=== PATIENT | female | born 1980 | race Caucasian/White ===

== ENCOUNTER → 2020-08-18 13:19 | Outpatient (CLI) | payer OTHER, SELFPAY ==
[2020-08-18] MEDS: COVID-19 VACC #1, MRNA(MOD) 100 MCG/0.5 ML VIAL IM (13:24)
== END ==
PROVIDERS: Visit Provider Internal Medicine
DX: Z23 Encounter for immunization (principal)
CPT/HCPCS: 0011A; 91301

== ENCOUNTER → 2020-09-15 13:07 | Outpatient (CLI) | payer OTHER, SELFPAY ==
[2020-09-15] MEDS: COVID-19 VACC #2, MRNA(MOD) 100 MCG/0.5 ML VIAL IM (13:13)
== END ==
PROVIDERS: Visit Provider Internal Medicine
DX: Z23 Encounter for immunization (principal)
CPT/HCPCS: 0012A; 91301

== ENCOUNTER → 2021-06-02 14:07 | Outpatient (CLI) | payer OTHER, SELFPAY | PROVIDERS: Visit Provider Nurse Practitioner Family | DX: N34.3 Urethral syndrome, unspecified (principal) | CPT/HCPCS: 87077; 87086; 87186 ==

== ENCOUNTER → 2024-05-13 08:35 | Outpatient (CLI) | payer OTHER, SELFPAY ==
[2024-05-13 09:45] LABS: Alanine Aminotransferase 21 IU/L (<35); Albumin 4.2 g/dL (3.5-5.0); Albumin Globulin Ratio 1.4 (1.0-2.8); Alkaline Phosphatase 75 U/L (38-126); Aspartate Aminotransferase 23 IU/L (14-36); BUN Creatinine Ratio 11.8 (6-22); Bilirubin Total 0.4 mg/dL (0.2-1.3); Blood Urea Nitrogen 11 mg/dL (7-17); Calcium 9.4 mg/dL (8.4-10.2); Carbon Dioxide 22 mmol/L (22-32); Chloride 108 mmol/L (98-107); Cholesterol 234 mg/dL (140-199); Estimated Glomerular Filt Rate > 60 mL/min (>60); Globulin 2.9 g/dL (1.7-4.1); Glucose 100 mg/dL (70-100); HDL Cholesterol 100 mg/dL (40-60); HEMOLYSIS < 15 (0-50); LDL Cholesterol Calculated 87 mg/dL (<100); Potassium 4.2 mmol/L (3.4-5.1); Sodium 137 mmol/L (137-145); Total Protein 7.1 g/dL (6.3-8.2); Triglycerides 234 mg/dL (35-150)
[2024-05-13 10:02] LABS: Prolactin 13.1 ng/mL (3.0-18.6)
[2024-05-13 10:03] LABS: Follicle Stimulating Hormone 3.01 mIU/mL; Luteinizing Hormone 2.51 mIU/mL
[2024-05-13 10:14] LABS: TSH w/ Reflex to FT4 4.05 uIU/mL (0.47-4.68)
[2024-05-13 13:05] LABS: Add Manual Diff / Slide Review NO; Basophils Absolute Auto 100 /uL (0-100); Basophils Percent Auto 0.9 % (0-2); Eosinophils Absolute Auto 100 /uL (0-450); Eosinophils Percent Auto 1.2 % (2-4); Hematocrit 35.8 % (36-46); Hemoglobin 11.3 g/dL (12.0-16.0); Lymphocytes Absolute Auto 2000 /uL (1100-4500); Lymphocytes Percent Auto 29.5 % (25-40); Mean Corpuscular HGB Conc 31.6 % (30-36); Mean Corpuscular Hemoglobin 25.4 PG (26-34); Mean Corpuscular Volume 80.5 fL (80-100); Monocytes Absolute Auto 700 /uL (0-900); Monocytes Percent Auto 9.9 % (3-14); Neutrophils Absolute Auto 4000 /uL (1500-7000); Neutrophils Percent Auto 58.5 % (50-75); Platelet Count 279 X10^3/uL (150-400); Red Blood Cell Count 4.45 X10^6/uL (4.0-5.2); Red Cell Distribution Width 16.8 % (11.6-14.8); White Blood Cell Count 6.9 X10^3/uL (4.5-11.0)
== END ==
LOC: LAB 08:36
PROVIDERS: PCP Family Medicine; Referring Provider Family Medicine; Visit Provider Family Medicine
DX: E66.9 Obesity, unspecified (principal); N93.9 Abnormal uterine and vaginal bleeding, unspecified
CPT/HCPCS: 36415; 80053; 80061; 82397; 83001; 83002; 84146; 84443; 85025

== ENCOUNTER → 2024-10-22 13:28 | Outpatient (CLI) | payer OTHER, SELFPAY ==
--- NOTE | 2024-10-22 13:29 | DI.US.S_ITS ---
PROCEDURE: US PELVIC COMPLETE INDICATIONS: Abnormal uterine bleeding TECHNIQUE: Real-time scanning was performed of the pelvic organs, with image documentation. Additional endovaginal scanning was necessary due to incomplete visualization of the adnexal and endometrial structures by transabdominal scanning. COMPARISON: [facility], US, US PELVIC COMPLETE WITH TRANSVAGINAL, 07/11/2023, 13:00. FINDINGS: Uterus: Uterus is anteverted and enlarged in size at 11.0 x 6.6 x 5.7 cm. The myometrium is homogeneous. The endometrium measures 24.4 mm combined thickness. Heterogeneous endometrial echotexture is seen. Focal mass with internal cystic area and internal vascularity is seen within endometrium measures 2.6 x 1.9 x 2.1 cm in size. Ovaries: The right ovary measures 3.9 x 2.6 x 2.0 cm, with a calculated ovarian volume of 10.6 cc. The left ovary measures 3.0 x 2.1 x 1.5 cm, with a calculated ovarian volume of 4.9 cc. Dominant follicle versus simple cyst is seen in right ovary measures 2.1 x 2.3 x 1.7 cm in size. Less than 12 follicles can be seen in each ovary. No adnexal masses are seen. Other: No pathologic free abdominal or pelvic fluid. IMPRESSION: 1. Enlarged uterus. No discrete uterine fibroids. 2. Thickened endometrium with suggestion of 2.6 x 1.9 x 2.1 cm solid mass within endometrium with internal vascularity . [employer]ist correlation is recommended. 3. Normal appearing bilateral ovaries. We strive to produce accurate, complete, and clear reports of imaging services. To assist us in improving patient care, this report was composed using standard report templates and voice recognition software. Therefore, it may contain abnormal punctuation, insertions and/or omissions. Occasional wrong-word or sound-alike substitutions may occur. Though we review the report and make efforts to correct it, we do recommend that the report be read carefully in proper context to recognize any text inaccuracies. Dictated by: David Rojas M.D. on 10/22/2024 at 17:10 Approved by: David Rojas M.D. on 10/22/2024 at 17:13
== END ==
PROVIDERS: PCP Family Medicine; Referring Provider Family Medicine; Visit Provider Family Medicine
DX: N93.9 Abnormal uterine and vaginal bleeding, unspecified (principal); N85.2 Hypertrophy of uterus; R93.89 Abnormal findings on diagnostic imaging of other specified body structures
CPT/HCPCS: 76830; 76856

== ENCOUNTER 2024-12-09 09:18 | Day surgery (SDC) | payer OTHER, SELFPAY ==
--- NOTE | 2024-12-09 | PATH_ITS ---
[facility] Accession Number: [id number] No. of containers..03 Tissue . 01 Material submitted: . PART A: colon - COLON, ASCENDING POLYP PART B: colon - SIGMOID POLYP PART C: rectosigmoid junction - RECTOSIGMOID POLYP X2 . 01 Diagnosis: A. ASCENDING COLON POLYP: Sessile serrated adenoma. . B. SIGMOID COLON POLYP: Hyperplastic polyp. . C. RECTOSIGMOID COLON POLYPS: Hyperplastic polyp x2. MRV 12/18/2024 1415 Local . 01 Electronically signed: . Elroy Sosa MD, PhD, Pathologist NPI- [id number] . 01 Gross description: . Part A: COLON, ASCENDING POLYP: Received in formalin is 1 fragment(s) of bell, soft tissue measuring 0.5 x 0.2 x 0.1 cm submitted entirely in 1 cassette(s) Part B: SIGMOID POLYP: Received in formalin is 1 fragment(s) of bell, soft tissue measuring 0.4 x 0.3 x 0.2 cm submitted entirely in 1 cassette(s) Part C: RECTOSIGMOID POLYP X2: Received in formalin are 2 fragment(s) of bell, soft tissue measuring 0.1 x 0.1 x 0.1 cm to 0.4 x 0.4 x 0.2 cm submitted entirely in 1 cassette(s) /SONAM 12/17/2024 1655 Local . 01 Pathologist provided ICD-10: D12.2 . 01 CPT . 011717, 787227, 784673 Specimen Comment: A courtesy copy of this report has been sent to [facility]ology Performed at: [address] [facility] [place], [place], [place] [id number] MD Devang Shi MD Phone: [phone]
[2024-12-09 09:40] VITALS: BP 126/85; PULSE 80; RESP 16; TEMP 36.1; O2SAT 94
[2024-12-09] MEDS: LACTATED RINGERS 1,000 ML 42 ML IV (09:52)
--- NOTE | 2024-12-09 10:18 | PM.PREOP ---
Pre-operative Note Interval Note History & Physical reviewed/Exam performed by Physician: Yes Changes to H&P: No ASA Class (for procedural sedation): I
--- NOTE | 2024-12-09 10:26 | PM.OP.COLON ---
Operative Date/Time/Diagnoses Date of procedure: 12/09/24 Time of procedure: 11:13 Pre-op diagnosis: Needs screening colonoscopy Post-op diagnosis: other (multiple sessile polyps) Procedure & Clinicians Study performed: Colonoscopy with polypectomy Same procedure(s) as scheduled: Yes Indications: 44yo F, LLQ pain, h/o endometrial mass, needs screening colonoscopy Surgeon: Alok Daniel Anesthesia Type: MAC +/- Procedure Notes SCOAP/Timeout: Performed Procedure in detail: Colonoscopy Patient placed in left lateral recumbent position. Time out was performed. Procedural sedation was administered by anesthesia. Examination began with a thorough inspection of the perianal area. There was no evidence of fissures, fistulae, external hemorrhoids or cutaneous malignancy. The colonoscope was then placed into the rectum and the lumen was insufflated with carbon dioxide. The scope was carefully advanced forward. Ultimately the cecum was intubated and confirmed by identification of the ileocecal valve, the appendiceal orifice and the confluence of the taenia. The scope was then slowly withdrawn examining the colon thoroughly in all directions. In the rectum, retroflexion of the scope was performed for inspection of the distal rectum and anal canal. ?Significant colonoscopy findings: ?1. Quality of the preparation-good, [place] 2-3, liquid stool suctioned/irrigated to facilitate mucosal examination ?2. Multiple 3-5mm benign appearing, sessile polyps, all removed with cold snare and retrieved for pathology; ascending colon x 1, sigmoid x 1, rectosigmoid x 2 Scope withdrawal time: 18 minutes Findings: polyp(s) Specimen(s): other (polyps) Complications: none Impression: Multiple benign appearing sessile polyps 3-5mm, removed with cold snare, pathology pending. Plan repeat screening colonoscopy in 5 years pending pathology Post-procedure Recommendations: Colonoscopy in 5 years Plan for aftercare: PACU, then home Follow up: as needed Disposition: PACU
[2024-12-09 11:10] VITALS: BP 113/66; PULSE 79; RESP 24; TEMP 36.3; O2SAT 98
[2024-12-09 11:15] VITALS: BP 111/70; PULSE 86; RESP 20; O2SAT 98
[2024-12-09 11:19] VITALS: BP 121/75; PULSE 74; RESP 20; TEMP 36.3; O2SAT 99
[2024-12-09 11:28] VITALS: BP 120/77; PULSE 66; RESP 15; O2SAT 98
== END 2024-12-09 11:40 | disposition home or self-care (01) ==
PROVIDERS: PCP Family Medicine; Referring Provider Surgery; Visit Provider Surgery
PROC: 0DJD8ZZ Inspection of Lower Intestinal Tract, Via Natural or Artificial Opening Endoscopic (ICD-10-PCS; CPT 45378; principal; 2024-12-09 10:30)
DX: Z12.11 Encounter for screening for malignant neoplasm of colon (principal); D12.2 Benign neoplasm of ascending colon; K63.5 Polyp of colon
CPT/HCPCS: 45385; J2704

== ENCOUNTER 2025-01-29 06:26 | Day surgery (SDC) | payer OTHER, SELFPAY ==
[2024-12-15 12:12] VITALS: BMI 36.9
[2025-01-29] VITALS (7 sets, daily range): BP systolic 120–139; BP diastolic 61–81; PULSE 58–101; RESP 13–18; TEMP 36.1–36.3; O2SAT 95–100; BMI 36.9
--- NOTE | 2025-01-29 | PATH_ITS ---
[facility] Accession Number: [id number] No. of containers..03 Tissue . 01 Material submitted: . PART A: endocervix - ENDOCERVICAL CURETTINGS PART B: endometrium - ENDOMETRIAL POLYP PART C: endometrium - ENDOMETRIAL CURETTINGS . 01 Diagnosis: A. ENDOCERVIX, CURETTAGE: Frgments of endocervical and transformation zone tissue with polypoid features. Negative for intraepithelial lesions and invasive carcinoma. . B. ENDOMETRIAL POLYP, EXCISION: Benign endometrial polyp. Negative for endometrioid intraepithelial neoplasia and malignancy. . C. ENDOMETRIUM, CURETTAGE: Fragments of benign endometrial polyp. Negative for endometrioid intraepithelial neoplasia and malignancy. [facility] 02/10/2025 1708 Local . 01 Electronically signed: . Mehnaz Frederick DO, Pathologist NPI- [id number] . 01 Gross description: . A. Received in formalin with two identifiers and endocervical curettings, are multiple bell soft tissue fragments admixed with a large amount of hemorrhagic material aggregating to 3.7 x 3.5 x 0.7 cm. Filtered and submited entirely in cassettes A1-A3. B. Received in formalin with two identifiers and endometrial polyp, are multiple bell soft tissue fragments admixed with hemorrhagic material aggregating to 3.4 x 2.5 x 0.6 cm. Filtered and submitted entirely in cassettes B1-B2. C. Received in formalin with two identifiers and endometrial curettings, are multiple red-brown soft tisssue fragments admixed with hemorrhagic material aggregating to 2.5 x 2.7 x 1.2 cm. Filtered and submitted entirely in cassettes C1-C2. ([id number]) /NILAM 02/04/2025 2137 Local . 01 Pathologist provided ICD-10: N92.0 . 01 CPT . 412459, 855719, [id number] Specimen Comment: A courtesy copy of this report has been sent to [phone] Performed at: [address] [id number] MD Devang Shi MD Phone: [phone]
[2025-01-29] MEDS: LACTATED RINGERS 1,000 ML 42 ML IV (06:48)
[2025-01-29] MEDS: ACETAMINOPHEN 325 MG TABLET 975 MG PO (06:48)
--- NOTE | 2025-01-29 07:17 | P.HPOB_ITS ---
History of Present Illness History of Present Illness Narrative: Ania is a 44-year-old [id number] 1st seen on 11/05/2024 presenting with a 2-3 year history of progressively heavy menses associated with severe pain on the left side with her menses. Patient had a recent pelvic ultrasound performed 10/22/2024 which showed: FINDINGS: Uterus: Uterus is anteverted and enlarged in size at 11.0 x 6.6 x 5.7 cm. The myometrium is homogeneous. The endometrium measures 24.4 mm combined thickness. Heterogeneous endometrial echotexture is seen. Focal mass with internal cystic area and internal vascularity is seen within endometrium measures 2.6 x 1.9 x 2.1 cm in size. Ovaries: The right ovary measures 3.9 x 2.6 x 2.0 cm, with a calculated ovarian volume of 10.6 cc. The left ovary measures 3.0 x 2.1 x 1.5 cm, with a calculated ovarian volume of 4.9 cc. Dominant follicle versus simple cyst is seen in right ovary measures 2.1 x 2.3 x 1.7 cm in size. Less than 12 follicles can be seen in each ovary. No adnexal masses are seen. Other: No pathologic free abdominal or pelvic fluid. IMPRESSION: 1. Enlarged uterus. No discrete uterine fibroids. 2. Thickened endometrium with suggestion of 2.6 x 1.9 x 2.1 cm solid mass within endometrium with internal vascularity . Wire Dropper correlation is recommended. 3. Normal appearing bilateral ovaries. We had an extended discussion regarding potential causes both for her abnormal uterine bleeding as well as the endometrial mass seen on US. We discussed the possibility of in-office endometrial sampling but due to the mass effect, such sampling would be inadequate and would not remove the mass within the endometrial cavity. Accordingly we discussed other options for more thorough evaluation and treatment of her abnormal bleeding as well as the abnormal ultrasound findings. Following these discussions, patient expresses a desire to proceed with hysteroscopic resection of the endometrial mass, with dilation and curettage. She presents today for preoperative evaluation, counseling, and co nsent. [facility] Medical History (Updated 12/03/24 @ 16:10 by Rylan Renee MD) Depression Surgical History (Updated 12/15/24 @ 12:16 by Rachelle Hernández RN) History of colonoscopy (12/09/24) [place] teeth removed Family History (Updated 05/08/24 @ 19:52 by Hannah Ambrosio) Father Hypertension Hyperlipidemia Grandmother Stroke Grandfather Stroke Social History household members: spouse and children Smoking Status: Never smoker alcohol intake: current Meds Home Medications and Allergies Home Medications ?Medication ?Instructions ?Recorded ?Confirmed ?Type No Known Home Medications 11/05/2401/19 History Allergies Allergy/AdvReac Type Severity Reaction Status Date / Time No Known Drug Allergies Allergy Verified 01/29/25 06:45 Review of Systems Review of Systems Narrative: Problem-specific ROS positives included in HPI Exam Vital Signs (past 8 hours): - 01/29/25 07:01 Temperature 97.2 F L Pulse Rate 101 H Respiratory Rate 16 Blood Pressure 136/81 Pulse Oximetry 95 Oxygen Delivery Method Room Air Oxygen Delivery Method Room Air Const General: cooperative and comfortable Nutritional Appearance: average body habitus Orientation: alert and oriented x3 HENMT Head: normal to inspection, atraumatic and abrasion Ears: hearing grossly normal bilaterally Face and sinus: face symmetric Eyes General: appearance normal, both eyes and all related structures Conjunctivae: conjunctivae normal Sclera: sclerae normal EOM: EOM intact bilaterally Neck Neck: normal visual inspection Resp Effort & Inspection: normal respiratory effort and able to speak in complete sentences Auscultation: clear to auscultation bilaterally Cardio Rate: regular rate Rhythm: regular rhythm Heart Sounds: S1 normal, S2 normal and no murmurs GI Inspection: normal to inspection Palpation: soft and no hepatosplenomegaly External Female Exam: other (No significant bleeding noted) Extrem General: no calf tenderness Psych Appearance: grossly normal Mental Status: mental status grossly normal Speech and Movement: speech and movement normal Mood: congruent mood Affect: normal affect Attitude: cooperative Thought Process: normal Thought Content: normal Judgment: judgment good Assessment & Plan Assessment and plan (1) Endometrial mass: Status: Acute (2) Abnormal uterine bleeding (AUB): Status: Acute Plan Patient counseled regarding alternatives, risks, benefits, and potential complications associated with hysteroscopy with resection of endometrial mass, and dilation and curettage of the uterus. With full understanding of the above, a written consent was executed, signed, and witnessed this date. Time-Based Coding :: 10 minutes] spent with patient and on the chart (including review of chart, obtaining history, exam, reviewing outside data, placing orders, documenting exam and treatment plan, and counseling patient) on 01/29/2025.
--- NOTE | 2025-01-29 07:34 | PM.PREOP ---
Pre-operative Note COVID-19 COVID-19 status: Not tested Interval Note History & Physical reviewed/Exam performed by Physician: Yes Changes to H&P: No
--- NOTE | 2025-01-29 08:44 | SUR.OPER ---
Lithotomy on padded OR bed, head on pillow, arms secured on padded arm boards at <90 degrees abduction. Legs secured in padded yellow fins stirrups. strap across waist
--- NOTE | 2025-01-29 09:10 | P.OP_ITS ---
Operative Date/Time/Diagnoses Date of procedure: 01/29/25 Time of procedure: 08:30 Pre-op diagnosis: Abnormal uterine bleeding Endometrial mass Post-op diagnosis: same Procedure & Clinicians Procedure: Procedures Operation Date: 01/29/25 07:45 Actual Procedure Side Surgeon p Hysteroscopy with removal of endometrial mass, D&C of the uterus Not Applicable Rylan Renee MD Indications: Ania is a 44-year-old [id number] 1st seen on 11/05/2024 presenting with a 2-3 year history of progressively heavy menses associated with severe pain on the left side with her menses. Patient had a recent pelvic ultrasound performed 10/22/2024 which showed: FINDINGS: Uterus: Uterus is anteverted and enlarged in size at 11.0 x 6.6 x 5.7 cm. The myometrium is homogeneous. The endometrium measures 24.4 mm combined thickness. Heterogeneous endometrial echotexture is seen. Focal mass with internal cystic area and internal vascularity is seen within endometrium measures 2.6 x 1.9 x 2.1 cm in size. Ovaries: The right ovary measures 3.9 x 2.6 x 2.0 cm, with a calculated ovarian volume of 10.6 cc. The left ovary measures 3.0 x 2.1 x 1.5 cm, with a calculated ovarian volume of 4.9 cc. Dominant follicle versus simple cyst is seen in right ovary measures 2.1 x 2.3 x 1.7 cm in size. Less than 12 follicles can be seen in each ovary. No adnexal masses are seen. Other: No pathologic free abdominal or pelvic fluid. IMPRESSION: 1. Enlarged uterus. No discrete uterine fibroids. 2. Thickened endometrium with suggestion of 2.6 x 1.9 x 2.1 cm solid mass within endometrium with internal vascularity . Functional Tester correlation is recommended. 3. Normal appearing bilateral ovaries. We had an extended discussion regarding potential causes both for her abnormal uterine bleeding as well as the endometrial mass seen on US. We discussed the possibility of in-office endometrial sampling but due to the mass effect, such sampling would be inadequate and would not remove the mass within the endometrial cavity. Accordingly we discussed other options for more thorough evaluation and treatment of her abnormal bleeding as well as the abnormal ultrasound findings. Following these discussions, patient expresses a desire to proceed with hysteroscopic resection of the endometrial mass, with dilation and curettage. She presents today for her scheduled surgery. Surgeon: Rylan Renee Anesthesia Type: General Operative Notes Findings: The uterus is normal in size and shape to bimanual examination. There is a fleshy polyp arising within the endocervical canal which was removed. There is a large smooth surface polyp within the cavity of the uterus which was also removed with the MyoSure. Once the polyp was removed the cavity was shown to be normal with bland looking endometrial surface and no other focal lesions. Both tubal ostia were seen. Closure Type: not applicable Specimen(s): endometrial curettings, endometrial polyp and other (Endocervical curettings) Applied: other (Tranexamic acid in PACU due to extensive raw surface at polyp base) Estimated blood loss (mL): 50 Blood products transfused: none Procedure in detail: With the patient under general LMA in the modified dorsal lithotomy position, the perineum, vagina, and lower abdomen were prepped and draped in the usual fashion for hysteroscopy with endometrial ablation. A pre-surgical safety time- out was then taken in accordance with [facility] OR protocols. A bivalve speculum was inserted in the vagina and the cervix visualized. The anterior lip of the cervix was grasped with a single-tooth tenaculum and the endocervical canal was then dilated to 6 mm diameter. Hysteroscope was placed through the endocervical canal into the endometrial cavity and the cavity was visualized. Findings within the endometrial cavity are well summarized above. A MyoSure Lite device was used to resect the endometrial polyp and following removal of the polyp, both tubal ostia were visualized. The hysteroscope was then withdrawn and a fractional dilation and curettage was accomplished with separate pathologic specimen submitted for the endometrial and endocervical curettings. The tenaculum was then removed from the anterior lip of the cervix and no bleeding was encountered. The speculum was then removed from the vagina and the patient awakened from anesthesia. She was then transferred to the PACU for a period of observation and recovery having tolerated the procedure well. Complications: none Post-operative Condition: stable Disposition: PACU Plan for aftercare: Routine post-op care.
[2025-01-29] MEDS: TRANEXAMIC ACID 1,000 MG in SODIUM CHLORIDE 0.9% 100 ML 200 MG IV (09:35)
== END 2025-01-29 10:17 | disposition home or self-care (01) ==
PROVIDERS: PCP Family Medicine; Referring Provider Obstetrics & Gynecology; Visit Provider Obstetrics & Gynecology
PROC: 0UDB8ZZ Extraction of Endometrium, Via Natural or Artificial Opening Endoscopic (ICD-10-PCS; CPT 58558; principal; 2025-01-29 07:45)
DX: N92.0 Excessive and frequent menstruation with regular cycle (principal); N94.89 Other specified conditions associated with female genital organs and menstrual cycle; N84.1 Polyp of cervix uteri
CPT/HCPCS: 58558; 81025; J1100; J1885; J2250; J2405; J2704; J3010